=== PATIENT | female | born 1970 | race American Indian/Alaskan Native ===

== ENCOUNTER 2019-04-22 12:31 | Emergency (ER) | payer BC, OTHER ==
[2019-04-22 12:48] VITALS: BP 147/87
[2019-04-22] MEDS ORDERED: Azithromycin 250 MG Tab ONE (13:32)
[2019-04-22] MEDS ORDERED: Azithromycin 250 MG Tab PO ONE (13:32)
--- NOTE | 2019-04-22 13:39 | EDM.PDOC ---
ED HPI GENERAL MEDICAL PROBLEM - General Chief Complaint: ENT Problem Stated Complaint: SORE THROAT, EARACHE Time Seen by Provider: 04/22/19 13:00 Source of Information: Reports: Patient History Limitations: Reports: No Limitations - History of Present Illness INITIAL COMMENTS - FREE TEXT/NARRATIVE: 48-year-old female presents emergency room with complaints of sinus pain, productive cough, sore throat, and new onset of left ear pain today. She was seen earlier in the week on Wednesday at [facility]. Strep test was taken. Patient is unaware whether it was positive but did talk with the provider the next day. She has not been taking anything such as a decongestant. She denies smoking. She denies any fever or chills. No nausea or vomiting or abdominal complaints. Appetite is been good. No diarrhea. She feels that she is not getting significantly better. Onset: Gradual Onset Date: 04/25/19 Duration: Day(s):, Getting Worse Location: Reports: Face Quality: Reports: Pressure Severity: Moderate Improves with: Reports: None Worsens with: Reports: None Associated Symptoms: Reports: cough w sputum. Denies: Fever/Chills, Nausea/ Vomiting, Shortness of Breath Generalized Pain Score (Numeric/FACES): 3 - Related Data Allergies Allergy/AdvReac Type Severity Reaction Status Date / Time Penicillins Allergy Cannot Verified 04/22/19 12:48 Remember Home Meds: Home Meds Albuterol [Proventil HFA] 2 puff INH ASDIRECTED PRN 01/05/17 [History] DULoxetine [Cymbalta] 60 mg PO DAILY 01/05/17 [History] Diltiazem [Cardizem CD] 180 mg PO DAILY 01/05/17 [History] Levothyroxine Sodium [Synthroid] 112 mcg PO DAILY 01/05/17 [History] Loratadine 10 mg PO DAILY PRN 01/05/17 [History] Losartan [Cozaar] 50 mg PO BID 01/05/17 [History] Triamterene/Hydrochlorothiazid [Triamterene-HCTZ 37.5-25 MG] 1 ea PO DAILY 01/05 [History] Dimethyl Fumarate [Tecfidera] 240 mg PO BID 04/22/19 [History] Past Medical History HEENT History: Reports: Allergic Rhinitis, Impaired Vision, Other (See Below) Other HEENT History: Wears glasses. Environmental allergies. 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 Musculoskeletal History: Reports: Arthritis, Back Pain, Chronic, Fracture, Osteoarthritis, Other (See Below) Other Musculoskeletal History: Calcaneal fracture of the right foot in 1995 with no surgery. 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 Denies: C-Difficile, Measles , Meningitis, Mononucleosis, MRSA, Mumps, Pertussis (Whooping Cough), Rheumatic Fever, Rubella, Scarlet Fever, Shingles, TB, VRE - Past Surgical History Head Surgeries/Procedures: Reports: None HEENT Surgical History: Reports: Oral Surgery, Other (See Below) Other HEENT Surgeries/Procedures: Previous tooth extractions Cardiovascular Surgical History: Reports: Cardiac Ablation, Other (See Below) Other Cardiovascular Surgeries/Procedures: Cardiac ablation for Jj-Parkinson- White syndrome in 1992 Respiratory Surgical History: Reports: None GI Surgical History: Reports: Colonoscopy, Hernia Repair/Other, Polypectomy, Other (See Below) Other GI Surgeries/Procedures: Umbilical hernia repair 1982; colonoscopy with polypectomy of unknown type in November 2014 Female Surgical History: Reports: None Endocrine Surgical History: Reports: Thyroid Biopsy, Other (See Below) Other Endocrine Surgeries/Procedures: Thyroid biopsy for benign disease/goiter 2 in the early Neurological Surgical History: Reports: None Musculoskeletal Surgical History: Reports: Ganglion Cyst, Other (See Below) Other Musculoskeletal Surgeries/Procedures:: Left ganglion cyst excision initially in the early with subsequent repeat surgery in about 2007 Oncologic Surgical History: Reports: None Dermatological Surgical History: Reports: None - Past Imaging History Past Imaging History: Reports: Cardiac Echo (In 1992 with results not available) . Denies: Angiography Social & Family History - Tobacco Use Smoking Status *Q: Never Smoker - Caffeine Use Caffeine Use: Reports: Energy Drinks, Soda - Living Situation & Occupation Living situation: Reports: Single (No children), with Family (Maternal uncle) Occupation: Employed ([employer]) ED ROS ENT - Review of Systems Review Of Systems: See Below Constitutional: Reports: No Symptoms HEENT: Reports: Ear Pain (left), Rhinitis, Throat Pain. Denies: Dental Pain, Ear Discharge Respiratory: Reports: Cough, Sputum. Denies: Shortness of Breath, Wheezing Cardiovascular: Reports: Blood Pressure Problem. Denies: Chest Pain, Lightheadedness Endocrine: Reports: No Symptoms GI/Abdominal: Reports: No Symptoms Musculoskeletal: Reports: Neck Pain (left side) Skin: Reports: No Symptoms Neurological: Reports: No Symptoms Psychiatric: Reports: No Symptoms Hematologic/Lymphatic: Reports: No Symptoms ED EXAM, ENT - Physical Exam Exam: See Below Exam Limited By: No Limitations General Appearance: Alert, WD/WN, No Apparent Distress Eye Exam: Bilateral Eye: EOMI, PERRL Ears: Normal External Exam, Normal Canal, Hearing Grossly Normal, TM Erythema ( left), TM Fluid (left). No: TM Blood Nose: Normal Inspection, Normal Mucousa Mouth/Throat: Normal Inspection, Normal Lips, Normal Oropharynx. No: Tonsillar Exudates, Tonsillar Swelling Head: Atraumatic, Normocephalic, Sinus Tenderness Neck: Normal Inspection, Supple, Tender Lateral. No: Lymphadenopathy (L), Lymphadenopathy (R) Respiratory/Chest: No Respiratory Distress, Lungs Clear, Normal Breath Sounds Cardiovascular: Normal Peripheral Pulses, Regular Rate, Rhythm GI/Abdominal: Soft Back: Normal Inspection Extremities: Normal Inspection Neurological: Alert, Oriented, Normal Cognition, Normal Gait, No Motor/Sensory Deficits Psychiatric: Normal Affect, Normal Mood Skin: Warm, Dry, Intact, Normal Color, No Rash Lymphatic: No Adenopathy Course - Vital Signs Last Recorded V/S: Last Vital Signs Temp 99.3 F 04/22/19 12:44 Pulse 84 04/22/19 12:44 Resp 20 04/22/19 12:44 BP 147/87 H 04/22/19 12:44 Pulse Ox 92 L 04/22/19 12:44 - Orders/Labs/Meds Meds: Medications Discontinued Medications Generic Name Dose Route Start Last Admin Trade Name Aleksandra PRN Reason Stop Dose Admin Azithromycin Confirm 04/22/19 13:32 04/22/19 13:25 Zithromax Administered 04/22/19 13:33 750 mg Dose Administration 750 mg .ROUTE .STK-MED ONE Departure - Departure Time of Disposition: 13:42 Disposition: Home, Self-Care 01 Condition: Good Clinical Impression: Sinusitis Qualifiers: Sinusitis location: maxillary Chronicity: acute Recurrence: non-recurrent Qualified Code(s): J01.00 - Acute maxillary sinusitis, unspecified Otitis media Qualifiers: Otitis media type: suppurative Chronicity: acute Laterality: left Recurrence: non-recurrent Spontaneous tympanic membrane rupture: without spontaneous rupture Qualified Code(s): H66.002 - Acute suppurative otitis media without spontaneous rupture of ear drum, left ear - Discharge Information Instructions: Sinusitis, Adult, [id number] Forms: ED Department Discharge - Assessment/Plan Assessment:: 1. Sinusitis 2. Left otitis media Plan: 1. Z-Dwight over 5 days. 2 by mouth today, 1 by mouth remaining 4 days 2. Mucinex every 6 hours when necessary for sinus congestion 3. Encouraged to drink plenty of fluids 4. Follow-up with your primary care next week if symptoms are not improving.
== END 2019-04-22 13:30 | disposition home or self-care (01) ==
LOC: KA.ED 12:31
DX: J01.00 Acute maxillary sinusitis, unspecified (principal); H66.002 Acute suppurative otitis media without spontaneous rupture of ear drum, left ear; F41.9 Anxiety disorder, unspecified; F32.9 Major depressive disorder, single episode, unspecified; J45.909 Unspecified asthma, uncomplicated; I10 Essential (primary) hypertension; E78.00 Pure hypercholesterolemia, unspecified; Z88.0 Allergy status to penicillin; Z79.899 Other long term (current) drug therapy
CPT/HCPCS: 99283; A9270-GY